=== PATIENT | female | born 1985 | race American Indian/Alaskan Native ===

== ENCOUNTER 2025-01-03 19:34 | Outpatient (CLI) | payer BC ==
[2025-01-03 20:53] VITALS: BP 149/82; PULSE 80; RESP 16; TEMP 98
--- NOTE | 2025-01-20 11:18 | P.MSEPDOC ---
Presenting Problems - Arrival Data Date of Arrival on Unit: 01/03/25 Time of Arrival on Unit: 19:34 Mode of Transport: Ambulatory - Complaint OB-Reason for Admission/Chief Complaint: Decreased Movement Medical History - Information : 1 Para: 0 Term: 0 : 0 Abortions: Spontaneous or Elective: 0 Number of Living Children: 0 - Gestational Age Gestational Age by PEARL (wks/days): 36 Weeks and 5 Days Review of Systems - Review of Systems Constitutional: No problems, Recent weight loss Breast: No problems ENT: No problems Cardiovascular: No problems Respiratory: No problems Gastrointestinal: No problems Genitourinary: No problems Musculoskeletal: No problems Neurological: No problems Skin: No problems Vital Signs - Temperature Temperature: 98.0 F Temperature Source: Oral - Pulse Right Brachial Pulse Rate: 80 Pulse Assessment Method: Automatic Cuff - Respirations Respiratory Rate: 16 Oxygen Delivery Method: Room Air O2 Sat by Pulse Oximetry: 100 - Blood Pressure Right Arm Blood Pressure: 149/82 Blood Pressure Mean: 104 Blood Pressure Source: Automatic Cuff Medical Screen Scoring - Cervical Exam Membranes: Intact - Uterine Contractions Resting: Soft to palpation - Assessment - Baby A Baseline FHR: 150 Heart Rate - NICHD Category: Category I (Normal) NST: Reactive Physician Notification - Physician Notified Physician Notified Date: 01/03/25 Physician Notified Time: 20:19 Physician: Shahid Kendall New Order Received: Yes - Notification Comment Comment: Dr. Kendall given report on patient that presents to triage for decreased movement throughout the day. Reactive NST obtained. PAtient now feeling baby move. Irritability noted on toco, no contractions or cramping per patient. Vitals reviewed. Patient to be discharged home. Maternal Triage Index - Stat/Priority 1 Stat Priority 1: No - Urgent/Priority 2 Urgent Priority 2: Yes Provider Notified: Shahid Kendall Provider Notified Time: 20:19 Criteria Met for Priority 2: decreased movement, reactive nst obtained. Disposition - Disposition OB Disposition: Discharge to home Discharge Date: 01/03/25 Discharge Time: 20:30 I agree with the RN Medical Screening Exam: Yes Physician's MSE Comment: I have neither seen nor examined the patient. Case reviewed; plan agreed upon as documented in EMR&OBIX.: Yes Diagnosis: RELATED CONDITIONS, UNSPECIFIED, THIRD TRIMESTER
== END 2025-01-03 20:30 ==
LOC: FBPOP 19:34
PROVIDERS: ATTEND Obstetrics & Gynecology
DX: O26.93 Pregnancy related conditions, unspecified, third trimester (principal); Z3A.36 36 weeks gestation of pregnancy; Z88.0 Allergy status to penicillin
CPT/HCPCS: 59025; 99213